=== PATIENT | female | born 1930 | race Caucasian/White ===

== ENCOUNTER 2018-07-28 18:27 | Emergency (ER) | payer MEDICARE, OTHER ==
[~2018-07-28] VITALS: Ht 157.5 cm; Wt 75.0 kg
[2018-07-28 18:35] VITALS: Ht 157.5 cm; Wt 75.0 kg
[2018-07-28] MEDS ORDERED: SOD CHLORIDE 0.9% 500 ML IV STA (22:31)
[2018-07-28 22:44] VITALS: BP 183/85; PULSE 72; RESP 21
[2018-07-28] MEDS ORDERED: KETOROLAC 15 MG INJ IV STA (23:08)
--- NOTE | 2018-07-28 23:19 | ERD ---
ER Documentation Chief Complaint Chief Complaint family reports patient has been unable to stand on and off for several week HPI This is an 88-year-old female with a past medical history of hypertension, chronic knee pain ongoing since 2006 who is presenting with exacerbation of her chronic knee pain. According to family, the patient has had difficulty moving around secondary to pain in her knees. Occasionally she feels like her knees are going to buckle and she feels weak, like she is about to fall. Her primary complaint at this time is bilateral moderate soreness and aching to her knees. The patient does not endorse any trauma or injury. She does not endorse any focal deficits. She does not endorse any saddle anesthesia. She has not had any incontinence or retention of urine or stool, though she does endorse chronic constipation. She does not endorse any focal weakness or numbness or tingling. She has not had any swelling to the legs. The patient is able to ambulate at home with a walker, but she does not like to use it. The patient reports that her symptoms have been ongoing for years, but she has not followed up with her primary care physician to be evaluated by an orthopedist. The patient denies feeling sick recently. The patient denies fever or chills. The patient has had no headache or vision changes. The patient does not endorse neck or back pain. The patient denies lightheadedness or dizziness. The patient has had no chest pain or trouble breathing. The patient denies nausea or vomiti ng. The patient denies abdominal pain. The patient denies changes to bowel movements or urination. The patient has had no focal deficits. The patient has had no weakness or numbness or tingling to the face or extremities. ROS All systems reviewed and are negative except as per history of present illness. Allergies Allergies: Coded Allergies: No Known Allergy (Unverified , 07/28/18) PMhx/Soc Medical and Surgical Hx: pt denies Surgical Hx History of Surgery: No Anesthesia Reaction: No Hx Neurological Disorder: No Hx Respiratory Disorders: No Hx Cardiac Disorders: Yes (HTN ) Hx Psychiatric Problems: No Hx Miscellaneous Medical Probl: No Hx Alcohol Use: No Hx Substance Use: No Hx Tobacco Use: No Smoking Status: Never smoker FmHx Family History: No diabetes Physical Exam Vitals Vital Signs Date Temp Pulse Resp B/P (MAP) Pulse Ox O2 O2 Flow FiO2 Time Delivery Rate 07/28/18 72 21 183/85 99 Room Air 22:44 (117) 07/28/18 98.0 83 20 176/77 100 18:35 (110) Physical Exam Const: No apparent distress, well-developed, well-nourished Head: Normocephalic, Atraumatic Eyes: Normal Conjunctiva. Extraocular movements intact. Pupils equal, round and reactive to light ENT: Normal External Ears, Nose and Mouth. Neck: Full range of motion. No meningismus. Resp: Clear to auscultation bilaterally, No wheezes, rales or rhonchi Cardio: Regular rate and rhythm. No murmurs, rubs or gallops Abd: Soft, non tender, non distended. Normal bowel sounds Skin: No petechiae or rashes Back: No midline tenderness. No CVA tenderness Ext: No cyanosis, or edema. Tenderness to her knees bilaterally with mild limitation to range of motion secondary to pain. Neur: Awake and alert. Cranial nerves intact. No facial droop. Normal strength, sensation and coordination. Psych: Normal Mood and Affect Result Diagram: 07/28/186 07/28/182315 Results 24 hrs Laboratory Tests Test 07/28/18 01:00 07/28/18 23:16 Urine Color YELLOW Urine Clarity CLEAR Urine pH 6.0 Urine Specific [place] 1.016 Urine Ketones NEGATIVE mg/dL Urine Nitrite NEGATIVE mg/dL Urine Bilirubin NEGATIVE mg/dL Urine Urobilinogen NEGATIVE mg/dL Urine Leukocyte Esterase NEGATIVE Noel/ul Urine Microscopic RBC 0 /HPF Urine Microscopic WBC 1 /HPF Urine Hemoglobin NEGATIVE mg/dL Urine Glucose NEGATIVE mg/dL Urine Total Protein 1+ mg/dl White Blood Count 11.9 10^3/ul Red Blood Count 3.42 10^6/ul Hemoglobin 10.7 g/dl Hematocrit 30.0 % Mean Corpuscular Volume 87.7 fl Mean Corpuscular Hemoglobin 31.3 pg Mean Corpuscular Hemoglobin Concent 35.7 g/dl Red Cell Distribution Width 13.2 % Platelet Count 418 10^3/UL Mean Platelet Volume 8.5 fl Immature Granulocytes % 0.600 % Neutrophils % 77.8 % Lymphocytes % 13.1 % Monocytes % 5.6 % Eosinophils % 2.6 % Basophils % 0.3 % Nucleated Red Blood Cells % 0.0 /100WBC Immature Granulocytes # 0.070 10^3/ul Neutrophils # 9.3 10^3/ul Lymphocytes # 1.6 10^3/ul Monocytes # 0.7 10^3/ul Eosinophils # 0.3 10^3/ul Basophils # 0.0 10^3/ul Nucleated Red Blood Cells # 0.0 10^3/ul Prothrombin Time 12.1 Sec Prothrombin Time Ratio 0.9 INR International Normalized Ratio 0.89 Sodium Level 121 mmol/L Potassium Level 5.3 mmol/L Chloride Level 86 mmol/L Carbon Dioxide Level 23 mmol/L Anion Gap 12 Blood Urea Nitrogen 27 mg/dl Creatinine 0.79 mg/dl Est Glomerular Filtrat Rate mL/min mL/min Glucose Level 112 mg/dl Calcium Level 9.8 mg/dl Total Bilirubin 0.2 mg/dl Direct Bilirubin 0.00 mg/dl Indirect Bilirubin 0.2 mg/dl Aspartate Amino Transf (AST/SGOT) 27 IU/L Alanine Aminotransferase (ALT/SGPT) 25 IU/L Alkaline Phosphatase 116 IU/L Troponin I < 0.012 ng/ml B-Type Natriuretic Peptide 127 PG/ML Total Protein 8.0 g/dl Albumin 4.1 g/dl Globulin 3.90 g/dl Albumin/Globulin Ratio 1.05 Current Medications Medications Dose Sig/Bernard Start Time Status Last (Trade) Ordered Route PRN Stop Time Admin Dose Reason Admin Sodium 500 ml @ Q1H STAT 07/28/18 DC 07/28/18 Chloride 500 mls/hr IV 22:31 22:31 07/28/18 23:30 Ketorolac 15 mg ONCE STAT 07/28/18 DC 07/28/18 Tromethamine IV 23:08 23:29 (Toradol) 07/28/18 23:09 Procedures/MDM MDM The patient's presentation warrants further investigation. Previous medical records, if available, were reviewed. LABS The patient's laboratory testing was obtained and reviewed. No emergent treatment was required unless described below. CBC: Mild normocytic anemia, not emergent. Mild thrombocytosis and leukocytosis, likely reactive, low clinical suspicion for a systemic infection. Chemistry: No E/o severe acidosis or alkalosis or renal failure or liver disease or diabetic ketoacidosis. Hyponatremia, will benefit from IV fluids. Mild hyperkalemia, not emergent. Elevated BUN, likely dehydration. PT/INR: No E/o significant coagulopathy Troponin: No E/o acute ischemia BNP: No E/o heart failure Urine: No E/o acute infection or hematuria EKG EKG read by me: Rate/Rhythm: Sinus rhythm at a rate of 72 beats per minute with a sinus arrhythmia Intervals: Normal [place]: Normal Impression: No evidence of acute ischemia or arrhythmia IMAGING Imaging and Radiology interpretation reviewed. CXR FINDINGS: Mild interstitial infiltrates in the lung bases may represent changes of minimal edema or early fibrosis. No pleural effusion. No pneumothorax. The cardiomediastinal silhouette is unremarkable. Vascular calcifications of the aorta are present compatible with atherosclerosis. IMPRESSION: Mild interstitial infiltrates in the lung bases may represent changes of minimal edema or early fibrosis. Electronically viewed and signed by Arnaldo Tejada MD, MD on 07/28/2018 23:06 XR L Knee FINDINGS: Fractures: None. Lytic or blastic lesions: None Joint spaces: Medial compartment: Severely narrowed, marginal osteophytosis Lateral compartment: Marginal osteophytosis Patellofemoral compartment: Severely narrowed with prominent marginal osteophytosis Suprapatellar bursa: No visible fluid. Extra articular soft tissues: Unremarkable. Arterial calcifications: Prominent IMPRESSION: 1. 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 2. Prominent peripheral artery disease. Electronically viewed and signed by Physician Vikki on 07/29/2018 01:15 XR R Knee FINDINGS: Fractures: None. Lytic or blastic lesions: None Joint spaces: Medial compartment: Maintained. Lateral compartment: Severely narrowed. Severe osteophytosis. The tibia is laterally subluxed beneath the femur. Patellofemoral compartment: Severely narrowed with marginal osteophytosis. Suprapatellar bursa: No visible fluid. Extra articular soft tissues: Calcification or ossification in the soft tissues along the lateral aspect of the distal femur. Arterial calcifications: Prominent IMPRESSION: 1. Severe osteoarthritis in the lateral and patellofemoral joint compartments. 2. Peripheral artery disease. Electronically viewed and signed by Physician Vikki on 07/29/2018 01:17 TREATMENT/DISPOSITION The patient's primary complaint is bilateral chronic knee pain that is been progressively getting worse for the last several months. The patient has significant arthritis. There is no evidence of trauma or injury. I have low suspicion for fracture or dislocation. I have very low clinical suspicion for DVT. The patient does have significant bilateral peripheral vascular disease, but I doubt this to be the etiology of her symptoms today. The patient does not endorse back pain. I do not suspect sciatica related to spinal stenosis. There is no evidence of cauda equina. The patient does report occasionally feeling very weak. This was evaluated in the emergency department as well. The patient has a reassuring physical exam. The patient is not clinically orthostatic. The patient is not dizzy. I have decreased suspicion for vertigo. The patient has no signs of emergent or symptomatic anemia. The patient does not have any emergent electrolyte or metabolic emergencies. The patient did have hyponatremia, which was treated with IV fluids. The patient was informed of this and instructed to increase salt in her diet. I doubt this to be the etiology of her symptoms and I do not feel the patient requires admission at this time. The patient did also have a mild hyperkalemia which does not require emergent treatment. I have decrease suspicion for a thyroid disorder. The patient is not toxic appearing. I have decreased suspicion for an infectious etiology of symptoms. The patient's EKG and troponin are reassuring. I have low suspicion for acute coronary syndrome. I do not see evidence of any emergent cardiac arrhythmia, which includes but is not limited to heart block, Brugada syndrome or WPW. The p atient has no heart murmurs or rales. There is no evidence of cardiomegaly on exam or chest xray. I have low suspicion for hypertrophic cardiomyopathy. I do not see evidence of CHF. The patient does not endorse any chest or pleuritic pain. The history is negative for bleeding or clotting disorders. The patient has not been involved in any recent prolonged trips or surgeries or hospitalizations. The patient has no calf tenderness or swelling. I have decreased suspicion for PE as the etiology of symptoms. The patient has no focal deficits. The neurologic exam is reassuring. I have decreased suspicion for cerebral ischemia. There was no trauma or injury. There is no personal or family history of cerebral aneurysm. I have decreased suspicion for SAH or other ICH. I have low suspicion for temporal arteritis, cavernous venous thrombosis, subdural hematoma, epidural hematoma, meningitis. The patient was treated with Toradol in the emergency department. DISCHARGE Upon reevaluation of the patient, symptoms have improved. No emergent diagnoses were identified. At this time, I feel that the patient stable for discharge. The patient was instructed to follow-up with a primary care physician in 1-3 days. The patient understands the need to potentially follow-up with an orthopedic surgeon given the severe arthritis that is present. The patient will be given strict precautions with which to return to the emergency department. Prescriptions: Naproxen The patient's blood pressure was elevated at greater than 120/80 while in the emergency department. The patient was otherwise stable with no evidence of hypertensive urgency or emergency. The patient does not require admission for blood pressure control. I have discussed with the patient the risks of hypertension. I have instructed the patient to return to the ER for any new or worsening symptoms including chest pain, shortness of breath, headache, blurred vision, confusion, nausea, vomiting or LOC. I have advised the patient to follow up with the primary care physician for outpatient monitoring and treatment for hypertension in 1-3 days. Disclaimer: Inadvertent spelling and grammatical errors are likely due to EHR/dictation software use and do not reflect on the overall quality of patient care. Note that the electronic time recorded on this note does not necessarily reflect the actual time of the patient encounter. Departure Diagnosis: Primary Impression: Osteoarthritis Osteoarthritis location: knee Osteoarthritis type: primary Laterality: bilateral Qualified Codes: M17.0 - Bilateral primary osteoarthritis of knee Additional Impressions: Bilateral knee pain Chronicity: chronic Qualified Codes: M25.561 - Pain in right knee; M25.562 - Pain in left knee; G89.29 - Other chronic pain Fatigue Fatigue type: chronic, unspecified Qualified Codes: R53.82 - Chronic fatigue, unspecified Leukocytosis Leukocytosis type: unspecified Qualified Codes: D72.829 - Elevated white blood cell count, unspecified Thrombocytosis Normocytic anemia Hyponatremia Hyperkalemia Dehydration Condition: Stable Patient Instructions: Anemia, Hyponatremia, Knee Pain, Uncertain Cause Additional Instructions: Thank you for for coming to [facility] for your care today. Please ask your nurse or provider if you have questions about your care today and do not leave until all your questions have been answered. Please use any medications given as directed and follow-up with your doctor (or the doctor you were referred to) in the next 1-3 days. If you do not have a primary care doctor you may follow up at the [facility] or [facility] (listed below). You may also use motrin and tylenol as needed for fever and/or pain unless instructed otherwise by your provider or nurse. Indications for more urgent follow-up have been discussed, but you may return to the Emergency Department at ANY time for any worrisome or worsening symptoms. If you have abdominal pain, please know that no test or exam you received is perfect and you should follow up within 8 hours for continued pain. If you had any imaging studies today, such as an X-Ray or CT Scan, these studies will be reviewed later by a radiologist. You will be called if there are important findings that were not identified today, so make sure the contact information you provided at registration is correct. If you received any narcotic pain control medicine today, such as Vicodin, Morphine or Dilaudid, your coordination and judgment may be affected for a numbe r of hours. Please do not drive or operate heavy machinery, and you may want someone to assist you at home. If you were given a prescription for narcotic medication, be aware that it is very addictive- use sparingly and only if necessary. PLEASE SEEK FURTHER EVALUATION AND MANAGEMENT AT YOUR DOCTORS OFFICE WITHIN THE NEXT 1-3 DAYS. IT IS YOUR RESPONSIBILITY TO MAKE AN APPOINTMENT FOR FOLOW-UP CAR E. IF YOU HAVE A PRIMARY DOCTOR, PLEASE CALL THEIR OFFICE TO SCHEDULE AN APPOINTMENT FOR FOLLOW UP. IF YOU DO NOT HAVE A PRIMARY DOCTOR YOU CAN CALL OUR PHYSICIAN REFERRAL HOTLINE AT IF YOU CAN NOT AFFORD TO SEE A PHYSICIAN YOU CAN CHOSE FROM THE FOLLOWING [facility]: [facility] [address] [facility]. [facility] [address] [facility] [facility] [address] [facility] [address] [facility]. [facility] [address] [facility]. [facility]. [address] AYE LEE MD Jul 28, 2018 23:19
[2018-07-29] MEDS ORDERED: NAPR-985 PO (01:56)
[2018-07-29] MEDS ORDERED: SOD CHLORIDE 0.9% 1,000 ML IV ONE (02:00)
== END 2018-07-29 03:29 | disposition home or self-care (01) ==
LOC: E/R 18:27
DX: M17.0 Bilateral primary osteoarthritis of knee (principal); R53.82 Chronic fatigue, unspecified; D72.829 Elevated white blood cell count, unspecified; D47.3 Essential (hemorrhagic) thrombocythemia; D64.9 Anemia, unspecified; E87.1 Hypo-osmolality and hyponatremia; E87.5 Hyperkalemia; E86.0 Dehydration; I10 Essential (primary) hypertension
CPT/HCPCS: 71045; 73562; 80053; 81001; 83880; 84484; 85025; 85610; 93005; J1885; J7030; J7040; 36415; 96374